=== PATIENT | female | born 1995 | race Caucasian/White ===

== ENCOUNTER → 2018-03-11 11:08 | Outpatient (CLI) | payer MEDICAID, SELFPAY ==
[2018-03-11 14:17] LABS: Hematocrit 33.9 % (37-47); Hemoglobin 11.2 g/dl (12.0-15.0); Mean Corpuscular Volume 96.9 fL (81-99); Mean Platelet Vol. 9.9 fl (6.2-12.0); Platelet Count 298 K/mm3 (150-450); White Blood Count 10.7 K/mm3 (4.4-11.0)
[2018-03-11 14:18] LABS: Scan Indicated on CBC? Y/N NO
[2018-03-11 14:22] LABS: Glucose Challenge Gest 1H 50g 131 mg/dL (70-140)
== END ==
PROVIDERS: Visit Provider Obstetrics & Gynecology
DX: Z34.82 Encounter for supervision of other normal pregnancy, second trimester (principal)
CPT/HCPCS: 36415; 82950; 85027

== ENCOUNTER → 2018-05-11 19:17 | Outpatient (CLI) | payer MEDICAID, SELFPAY ==
[2018-05-11 21:00] LABS: Group B Strep DNA By PCR Negative (Negative); Internal Control PASS; Probe Check PASS; Specimen Processing Control PASS
== END ==
PROVIDERS: Visit Provider Obstetrics & Gynecology
DX: Z36.85 Encounter for antenatal screening for Streptococcus B (principal)
CPT/HCPCS: 87081; 87653

== ENCOUNTER 2018-06-03 05:15 | Inpatient (IN) | payer MEDICAID, SELFPAY ==
[2018-06-01 13:53] LABS: Absolute Lymphocyte Count 2.54 X10^3/ul (0.83-4.51); Absolute Neutrophil Count 8.8 X10^3/uL (2.0-7.7); Basophil# 0.01 X10^3/uL; Basophil% 0.1 % (0-1); Eosinophil# 0.06 X10^3/uL; Eosinophils% 0.5 % (0-5); Hematocrit 31.6 % (37-47); Hemoglobin 10.6 g/dl (12.0-15.0); Lymphocyte # 2.54 X10^3/ul (4.0); Lymphocyte % 20.5 % (19-41); Mean Corp Hgb Conc 33.5 g/gl (32-36); Mean Corpuscular Volume 95.5 fL (81-99); Monocyte# 0.89 X10^3/uL; Monocyte% 7.2 % (0-10); Neutrophil # 8.77 X10^3/uL (2.7-7.7); Neutrophil % 70.8 % (47-70); Platelet Count 258 K/mm3 (150-450); RBC Distribution Width CV 13.4 % (11.6-14.6); RBC Distribution Width SD 44.5 fl (35.1-43.9); Red Blood Count 3.31 M/mm3 (4.2-5.4); White Blood Count 12.4 K/mm3 (4.4-11.0)
[2018-06-01 13:54] LABS: POSITIVE COUNT NO; POSITIVE DIFFERENTIAL NO; POSITIVE MORPHOLOGY NO
[2018-06-01 14:02] LABS: International Normalized Ratio 1.1; Partial Thromboplast Time 26.7 Seconds (24.1-36.2); Prothrombin Time (Protime)PT. 13.7 SECONDS (11.7-14.9)
[2018-06-01 14:15] VITALS: BMI 44.7
[2018-06-03] VITALS (21 sets, daily range): BP systolic 91–104; BP diastolic 45–85; PULSE 80–99; RESP 16–18; TEMP 36.2–37.5; O2SAT 96–100
[2018-06-03] MEDS: Lactated Ringers 1,000 ML 999 ML IV (06:00)
[2018-06-03] MEDS: Lactated Ringers 1,000 ML 150 ML IV (07:00)
[2018-06-03] MEDS: Sodium Citrate/Citric Acid 30 ML UDC PO (07:15)
[2018-06-03] MEDS: Cefazolin 2 GM in 0.9% Normal Saline 100 ML IV (07:25)
--- NOTE | 2018-06-03 07:40 | PCM.OP.BLANK ---
Operative Report Date of Procedure: 06/03/18 Surgeon: Rayo Brooks MD, FACOG Financial Administrator: ZEYAD Wall Anesthesia: Imani Hill MD Anesthesia: Spinal with Duramorph Pre-op Diagnosis: - -Prior Section Post-Op Diagnosis: - -Prior Section Procedure: Repeat Low Transverse Cervical Caesarean Section Findings: Viable female infant with Apgars of 8/9 in put anterior presentation with clear amniotic fluid and normal three-vessel placenta. Indication: This is a 23-year-old who presents for her second at 39+ weeks gestation. care has otherwise been uneventful. The patient has been counseled regarding the risk and indications of this procedure including the possibility of bleeding infection and injury to surrounding structures such as bowel bladder. All questions were answered. Procedure: Patient was taken to the operating room where after spinal anesthesia was placed, the patient was prepped and draped in usual sterile fashion and a Lai catheter was placed. The abdomen was entered through the patient's prior Pfannenstiel incision and peritoneum was entered bluntly. After developing a bladder flap on the lower uterine segment a low transverse incision was made on the uterus and head was easily delivered onto the operative field the nose mouth and oropharynx were bulb suctioned. Subsequently a viable female infant was born with Apgars of 8/9. The infant was noted to cry move all extremities vigorously on the operative field. The umbilical cord was doubly clamped and ligated and handed to the nursery personnel who were present for the delivery. Placenta was delivered and noted to be 3 vessels and normal. Uterus was exteriorized and remaining placental tissue was removed. The uterus was then closed in 2 layers first with running locked 0 Vicryl suture followed by a second imbricating layer with 0 Vicryl suture. 0 Vicryl suture was then used in a horizontal mattress interrupted fashion to affect final hemostasis of the uterine incision line. Normal fallopian tubes and ovaries were visualized and the uterus was returned to the pelvis. Hemostasis was noted and rectus abdominis muscles were reapproximated in the midline with interrupted Number 0 Vicryl suture in a horizontal mattress fashion. Fascia was closed with running Number 1 PDS Strata fix suture. Subcutaneous tissue was irrigated with copious amouts of saline solution and then closed with running 3-0 Vicryl suture. Skin was closed with 4-0 monocryl suture in a running subcuticular fashion. Steri strips, telfa, and tape were placed across the incision. The patient tolerated the procedure well and was taken to the recovery room in satisfactory condition. Sponge, needle, and instrument counts were all reportedly correct. EBL was less than 500 cc. Ancef 2 gms IV was given prior to the procedure. Spicemen to Pathology: None Complications: None
--- NOTE | 2018-06-03 07:41 | DCINST_ITS ---
Discharge Diet: No Restrictions Discharge Activity: May not drive while taking narcotic pain medications., May Shower, May Take a Tub Bath May resume sexual activity in: 4-6 weeks Lifting Restrictions: 20 pounds Additional Activity Instructions:: Nothing in the vagina for 4-6 weeks. You may return to work/school in 6 weeks. Call your doctor if your incision/area has: Continuous Slow Oozing, Sudden Increased Bleeding, Increased Pain/ Swelling, Increased Redness, Foul Smelling Discharge Call your doctor if you observe: Fever of 101 or Higher, Inability to urinate, Inability to have a bowel movement, Using more than one pad per hour Additional Instructions: If you experience any of the following, contact your healthcare provider. * Bleeding that soaks a pad every hour for 2 hours * Unrelieved incision or abdominal pain * Swelling, redness, discharge or bleeding from your incision or episiotomy site * Your incision begins to separate * Problems urinating (including inability to urinate or burning while urinating) . * Visual changes * Severe headache * Flu-like symptoms * Pain or redness in one of both of your breasts * Pain, warmth, tenderness or swelling in your legs, especially the calf area * Frequent nausea and vomiting * Symptoms of depression or anxiety If you experience any of the following, call 911 or go to the nearest Emergency Room. * Chest pain * Problems breathing * Seizure activity * Partial or complete paralysis of a body part, slurred speech, weakness or drooping of the face, or a sudden inability to walk or hold your balance Allergies/Adverse Reactions: Allergies No Known Allergies Allergy (Verified 06/01/18 14:17) Medications to take at Discharge Heparin Injection 5,000 units SC Q8 06/01/18 Vits [Prenatabs FA] 1 tablet PO DAILY 06/01/18 Docusate Sodium [Colace] 100 mg PO BID PRN PRN #60 cap 06/03/18 Enoxaparin [Lovenox] 40 mg SC DAILY@0600 #30 syringe 06/03/18 Oxycodone [Oxyir] 5 mg PO Q6H PRN PRN 7 Days #20 tab 06/03/18 The following prescriptions were given: Oxycodone [Oxyir] 5 mg PO Q6H PRN PRN 7 Days #20 tab PRN Reason: Severe Pain (-08/18) Docusate Sodium [Colace] 100 mg PO BID PRN PRN #60 cap PRN Reason: Constipation Enoxaparin [Lovenox] 40 mg SC DAILY@0600 #30 syringe Follow-Up: Call to make an appointment with your doctor for an incision check in 1-2 weeks. You will also need a 6 week post- follow up appointment. Test results from this visit will be discussed in further detail at your follow- up appointment, if applicable. Please Follow Up With: Rayo Brooks MD - [phone] When: Call to make an appointment for an incision check in 2 weeks. Primary Care Physician: Rayo Avitia [Primary Care Provider] -
[2018-06-03] MEDS: Oxytocin 30 units/NS 500 ml 30 UNITS/500 ML IV.SOLN 167 UNITS IV (07:51)
[2018-06-03] MEDS: Lactated Ringers 1,000 ML 100 ML IV ×2 (09:00→15:45)
[2018-06-03] MEDS: Ondansetron 4 MG/2 ML Vial IV (11:05)
[2018-06-03] MEDS: 0.9% Saline Lock 10 ML Syringe IV ×2 (12:21→18:05)
[2018-06-03] MEDS: Ketorolac 30 MG/ML Syringe IV ×2 (12:21→18:04)
[2018-06-03] MEDS: Heparin Injection (Vial) 5,000 UNIT/ML VIAL 5000 UNIT SC ×2 (14:19→22:41)
[2018-06-03] MEDS: Cefazolin 1 GM/50 ML BAG IV ×2 (15:45→22:42)
[2018-06-04] VITALS (10 sets, daily range): BP systolic 87–102; BP diastolic 41–63; PULSE 57–91; RESP 16–18; TEMP 36.3–37.1; O2SAT 95–100
[2018-06-04] MEDS: Ketorolac 30 MG/ML Syringe IV ×4 (00:56→17:58)
[2018-06-04] MEDS: Heparin Injection (Vial) 5,000 UNIT/ML VIAL 5000 UNIT SC (06:27)
[2018-06-04 06:55] LABS: Hematocrit 28.6 % (37-47); Hemoglobin 9.6 g/dl (12.0-15.0); Mean Corp Hgb Conc 33.6 g/gl (32-36); Mean Corpuscular Hgb 32.4 pg (27.0-32.0); Mean Corpuscular Volume 96.6 fL (81-99); Platelet Count 239 K/mm3 (150-450); RBC Distribution Width CV 13.4 % (11.6-14.6); RBC Distribution Width SD 44.4 fl (35.1-43.9); Red Blood Count 2.96 M/mm3 (4.2-5.4); Scan Indicated on CBC? Y/N NO; White Blood Count 12.3 K/mm3 (4.4-11.0)
--- NOTE | 2018-06-04 07:54 | PCM.PN.OB ---
Subjective: Patient without complaints. Tolerating diet well. Positive flatus. Minimal vaginal bleeding. Pain well controlled - Physical Exam Vital Signs AF, VSS Temp Pulse Resp BP Pulse Ox 97.4 F L 85 16 94/41 L 100 06/04/18 03:50 06/04/18 06:00 06/04/18 06:00 06/04/18 03:50 06/04/18 06:00 Oxygen Delivery Method Room Air Weight: 229 lb Body Mass Index (BMI) 44.7 Intake and Output for Last 24 Hours 06/02/18 06/03/18 06/04/18 23:59 23:59 23:59 Intake Total 5964 / 5964 1109 / 1109 Output Total 4000 / 4000 1600 / 1600 Balance 1964 / 1964 -491 / -491 Laboratory Tests Past 24 Hrs 06/04/18 06:30 WBC 12.3 H RBC 2.96 L Hgb 9.6 L Hct 28.6 L MCV 96.6 MCH 32.4 H MCHC 33.6 RDW 13.4 RDW Differential 44.4 H Plt Count 239 MPV 10.0 Wound is clean, dry, intact. Good urine output. Hemoglobin okay. Medical Necessity - Tobacco Use Smoking Status: Never smoker Assessment/Plan Doing well postoperative day #1 for repeat . Will switch from heparin to Lovenox today. Plan to continue Lovenox for 6 weeks . Anticipate release tomorrow if good progress continues.
[2018-06-04] MEDS: 0.9% Saline Lock 10 ML Syringe IV ×2 (12:31→17:58)
[2018-06-04] MEDS: Enoxaparin 40 MG/0.4 ML Syringe SC (14:12)
[2018-06-04] MEDS: Senna/Docusate Sodium 1 Tablet PO (21:31)
[2018-06-05] MEDS: Ibuprofen 600 MG Tablet PO ×2 (00:28→09:44)
[2018-06-05 02:33] VITALS: BP 105/54; PULSE 71; RESP 16; TEMP 36.4; O2SAT 97
[2018-06-05] MEDS: Acetaminophen 500 MG Tablet 1000 MG PO (06:05)
--- NOTE | 2018-06-05 08:19 | PCM.PN.OB ---
Subjective: No specific complaints. Pain reasonably controlled with tylenol and ibuprofen. Breast feeding. Bleeding light. Objective: Afeb VSS - Physical Exam General: Alert, Oriented x3, Cooperative, No apparent distress Lungs: Clear to auscultation, Normal air movement Cardiovascular: Regular rate, Regular Rhythm Abdomen: Soft, Non Tender, Non-Distended, - - Incision intact, dry no erythema Extremities: No edema Skin: No rashes Neurological: Neuro grossly intact Psych/Mental Status: Normal Affect Comment: Lochia light Vital Signs Temp Pulse Resp BP Pulse Ox 97.6 F L 71 16 105/54 L 97 06/05/18 02:33 06/05/18 02:33 06/05/18 02:33 06/05/18 02:33 06/05/18 02:33 Oxygen Delivery Method Nasal Cannula Weight: 229 lb Body Mass Index (BMI) 44.7 Intake and Output for Last 24 Hours 06/03/18 06/04/18 06/05/18 23:59 23:59 23:59 Intake Total 5964 / 5964 1109 / 1109 Output Total 4000 / 4000 1600 / 1600 Balance 1964 / 1964 -491 / -491 Medical Necessity - Tobacco Use Smoking Status: Never smoker Assessment/Plan Doing well on POD#2. Cleared for discharge home today. Home going instructions and warnings given.
--- NOTE | 2018-06-05 08:21 | PCM.DC.SUM ---
Discharge Date and Diagnosis Date of Admission: 06/03/18 Date of Discharge: 06/05/18 - Primary Discharge Diagnosis S/P repeat C/S Hospital Course and Treatment Operations: - - Repeat LTCS Summary of Care Provided: The patient is a 23 year old F [admitted for scheduled C/S. This was performed by Dr. Brooks without complication. Post operative course unremarkable.] Discharge Diet: No Restrictions Discharge Activity: May not drive while taking narcotic pain medications., May Shower, May Take a Tub Bath May resume sexual activity in: 4-6 weeks Additional Activity Instructions:: Nothing in the vagina for 4-6 weeks. You may return to work/school in 6 weeks. Call your doctor if your incision/area has: Continuous Slow Oozing, Sudden Increased Bleeding, Increased Pain/ Swelling, Increased Redness, Foul Smelling Discharge Call your doctor if you observe: Fever of 101 or Higher, Inability to urinate, Inability to have a bowel movement, Using more than one pad per hour Home Medications: Medications to take at Discharge Heparin Injection 5,000 units SC Q8 06/01/18 Vits [Prenatabs FA] 1 tablet PO DAILY 06/01/18 Docusate Sodium [Colace] 100 mg PO BID PRN PRN #60 cap 06/03/18 Enoxaparin [Lovenox] 40 mg SC DAILY@0600 #30 syringe 06/03/18 Oxycodone [Oxyir] 5 mg PO Q6H PRN PRN 7 Days #20 tab 06/03/18 Following Prescrptions Were Given to Patient: Oxycodone [Oxyir] 5 mg PO Q6H PRN PRN 7 Days #20 tab PRN Reason: Severe Pain (6-08/18) Docusate Sodium [Colace] 100 mg PO BID PRN PRN #60 cap PRN Reason: Constipation Enoxaparin [Lovenox] 40 mg SC DAILY@0600 #30 syringe Primary Care Physician: Rayo Avitia [Primary Care Provider] - Please Follow Up With: Rayo Brooks MD - [phone] When: Call to make an appointment for an incision check in 2 weeks. Disposition: Home Minutes spent on discharge:: 15 Patient Condition:: Good Medical Necessity - Tobacco Use Smoking Status: Never smoker Meaningful Use Info Meaningful Use Diagnoses (Choose all that apply): None applicable
[2018-06-05] MEDS: Senna/Docusate Sodium 1 Tablet PO (09:44)
[2018-06-05 09:45] VITALS: BP 96/62; PULSE 75; RESP 16; TEMP 36.6; O2SAT 98
[2018-06-05] MEDS: oxyCODONE 5 MG Tablet PO (13:32)
[2018-06-05 14:07] VITALS: BP 106/70; PULSE 75; RESP 16; TEMP 36.4; O2SAT 96
--- NOTE | 2018-06-11 12:59 | NURSING ---
Left Message 06/11 in attempt to do follow up phone call.
== END 2018-06-05 15:25 | disposition home or self-care (01) | DRG 371 ==
PROVIDERS: Admitting Provider Obstetrics & Gynecology; Family Provider Family Medicine; PCP Family Medicine; Visit Provider Obstetrics & Gynecology
PROC: 10D00Z1 Extraction of Products of Conception, Low, Open Approach (ICD-10-PCS; CPT 59514; principal; 2018-06-03 07:15)
DX: O34.211 Maternal care for low transverse scar from previous cesarean delivery (principal); Z3A.39 39 weeks gestation of pregnancy; Z37.0 Single live birth; Z86.718 Personal history of other venous thrombosis and embolism
CPT/HCPCS: 85025; 85027; 85610; 85730; 86850; 86900; 99218; J7120; A4216; G0378; J2405